=== PATIENT | female | born 1985 | race African-American/Black ===

== ENCOUNTER 2022-06-13 11:59 | Emergency (ER) | payer BC, MEDICAID ==
[~2022-06-13] VITALS: Ht 165.1 cm; Wt 60.0 kg
[2022-06-13 12:06] VITALS: BP 150/104
[2022-06-13] MEDS ORDERED: HYDROCODONE/ACETAMINOPHEN 5/325MG TABLET PO ONE (13:15)
== END 2022-06-13 13:45 | disposition left against medical advice (07) ==
LOC: ER 11:59
DX: R51.9 Headache, unspecified (principal); I12.0 Hypertensive chronic kidney disease with stage 5 chronic kidney disease or end stage renal disease; N18.6 End stage renal disease; E05.90 Thyrotoxicosis, unspecified without thyrotoxic crisis or storm; Z99.2 Dependence on renal dialysis; Z88.8 Allergy status to other drugs, medicaments and biological substances; Z88.0 Allergy status to penicillin
CPT/HCPCS: 71045; 93005; 99283